=== PATIENT | female | born 1950 | race Caucasian/White ===

== ENCOUNTER 2019-03-15 15:05 | Emergency (ER) | payer MEDICARE ==
[~2019-03-15] VITALS: Ht 160 cm; Wt 77.3 kg
[2019-03-15 15:10] VITALS: TEMP 97.7
[2019-03-15] MEDS ORDERED: WELLBUTRIN XL300 M1 PO (15:35)
[2019-03-15] MEDS ORDERED: HYZAAR 25 MG-101 TAB PO (15:35)
[2019-03-15] MEDS ORDERED: ASPIRIN 32325 MG/TAB PO (15:35)
[2019-03-15] MEDS ORDERED: NORVASC 5MG5 MG/TAB PO (15:35)
[2019-03-15] MEDS ORDERED: ZOCOR 20MG20 MG PO (15:36)
[2019-03-15 16:34] VITALS: BP 144/75; PULSE 70
== END 2019-03-15 16:35 | disposition home or self-care (01) ==
LOC: COL.ER 15:05
DX: Z20.3 Contact with and (suspected) exposure to rabies (principal); Z23 Encounter for immunization; E78.00 Pure hypercholesterolemia, unspecified; I10 Essential (primary) hypertension
CPT/HCPCS: 90375

== ENCOUNTER 2019-03-29 13:05 | Outpatient (RCR) | payer MEDICARE ==
[~2019-03-29 13:05] MED LIST: ASPIRIN 32325 MG/TAB PO; HYZAAR 25 MG-101 TAB PO; NORVASC 5MG5 MG/TAB PO; WELLBUTRIN XL300 M1 PO; ZOCOR 20MG20 MG PO
[2019-03-29 13:13] VITALS: BP 152/73; PULSE 78; TEMP 97.7
== END 2019-06-16 | disposition still patient (30) ==
LOC: COL.ER
DX: Z23 Encounter for immunization (principal); Z20.3 Contact with and (suspected) exposure to rabies